=== PATIENT | male | born 1970 | race Caucasian/White ===

== ENCOUNTER 2025-03-27 08:34 | Outpatient (CLI) | payer OTHER, SELFPAY ==
--- NOTE | ~2025-03-27 | NM_ITS ---
EXAMINATION: NM parathyroid imaging w spect DATE: 03/27/2025 12:13 INDICATION: Hypercalcemia TECHNIQUE: 21 mCi Tc99m sestamibi (Cardiolite) was administered by intravenous route. Anterior images of the neck were obtained at 10 minutes and 2 hours. Delayed SPECT imaging reconstructed in the axia l, sagittal and coronal planes was also obtained. COMPARISON: None. FINDINGS/IMPRESSION: There is a prominent focus of persistent activity at the deep, inferior left thyroid consistent with parathyroid adenoma. Reviewed, dictated and finalized at location A.
--- OUTSIDE RECORDS SUMMARY | 2025-03-27 08:44 | XMS_ITS | Clinical Summary ---
Author Organization [facility] Address [address] [place] [address] Care Team Providers Care Lead Housekeeper Name Role Phone Marina Chou MD, Josh Primary Care Provider [phone] Encounters Date Type Department Care Team Description 03/25/2025 7:00 AM CDT - 03/25/2025 11:59 PM CDT Hospital Encounter [facility] [address] [place] [address] Josh Gray MD Arrived Discharge Disposition: Home or Self Care (Routine Discharge) 03/25/2025 Travel from Last 3 Months Social History Tobacco Use Types Packs/Day Years Used Date Smoking Tobacco: Never Assessed Sex and Gender Information Value Date Recorded Sex Assigned at Male 03/25/2025 7:11 AM CDT Legal Sex Male 8:03 AM CDT Gender Identity Not on file Sexual Orientation Not on file Plan of Treatment Health Maintenance Due Date Last Done Comments Colorectal Cancer Screening Colonoscopy (10 Years) 1968 Annual Physical 1971 Hepatitis C 1986 DTaP, Tdap and Td Vaccines ( 1 - Tdap) 1987 Hepatitis B Vaccines (1 of 3 - 19+ 3-dose series) 1987 Pneumococcal Vaccine: 50+ Ye ars (1 of 1 - PCV) 2018 Zoster Vaccines (1 of 2) 2018 COVID-19 Vaccine (2023-2 5 season) 2024 Meningococcal B Vaccine Aged Out No l onger eligible based on patient's age to complete this topic Meningococcal Vaccine Aged Out No colin delaney eligible based on patient's age to complete this topic RSV Immunizations Under 20 Months Aged Out No longer eligible based on patient's age to complete this topic Procedures Procedure Name Priority Date/Time Associated Diagnosis Comments CT BONE DENSITY AXIAL Routine 03/25/2025 7:40 AM CDT Hypercalcemia from Last 3 Months Results * CT BONE DENSITY AXIAL (03/25/2025 7:40 AM CDT) Anatomical Region Laterality Modality Bone Computed Tomogra phy 03/25/2025 8:19 PM CDT Impressions 03/25/2025 8:19 PM CDT IMPRESSION:===== BMD score of 130.5 is compatible with normal bone density Referred By: JOSH GRAY V Interpreted By: Shon De Leon MD, 03/25/2025 8:19 PM Narrative 03/25/2025 8:19 PM CDT [address] [place] [address] EXAMINATION: CT bone density EXAM DATE/TIME: 03/25/2025 7:34 AM REASON FOR EXAM: hypercalcemia postmenopausal status TECHNIQUE: Bone density measurements utilizing Quantitative CT are acquired at L2, L3, and L4 levels. Automated exposure control was utilized for dose reduction. Findings: Mean BMD: 130.5 mg/cc T score: -1.7 Z score: 0.7 ===== Procedure Note Shon De Leon MD - 03/25/[address] [place] [address] EXAMINATION: CT bone density EXAM DATE/TIME: 03/25/2025 7:34 AM REASON FOR EXAM: hypercalcemia postmenopausal status TECHNIQUE: Bone density measurements utilizing Quantitative CT areacquired at L2, L3, and L4 levels. Automated exposure control wasutilized for dose reduction. Findings: Mean BMD: 130.5 mg/cc T score: -1.7 Z score: 0.7 ===== IMPRESSION:===== BMD score of 130.5 is compatible with normal bone density Referred By: JOSH GRAY V Interpreted By: Shon De Leon MD, 03/25/2025 8:19 PM Josh Chou MD CT Final Result from Last 3 Months Insurance [employer] Care Teams Lead Housekeeper Relationship Specialty Start Date End Date Josh Gray MD [facility] [address] [place] [address] PCP - General INTERNAL MEDICINE 03/25/25
--- OUTSIDE RECORDS SUMMARY | 2025-03-27 08:45 | XMS_ITS | Encounter Summary ---
Author Organization [facility] Address [address] [place] [address] Care Team Providers Care Clerical Administrator Name Role Phone Marina Chou MD, Faisal Primary Care Provider [phone] Reason for Referral * Imaging (Routine) - Closed Specialty Diagnoses / Procedures Referred By Gena roberts Referred To Contact RADIOLOGY Diagnoses Hypercalcemia Procedures CT BONE DENSITY AXIAL Josh Gray MD [facility] [address] [address] Phone: tel: fax: Referral ID Status Reason Start Date Expiration Date Visits Re quested Visits Authorized Closed 03/25/2025 03/25/2025 1 1 Reason for Visit * Imaging (Routine) - Closed Specialty Diagnoses / Procedures Referred By Gena roberts Referred To Contact RADIOLOGY Diagnoses Hypercalcemia Procedures CT BONE DENSITY AXIAL Josh Gray MD [address] [address] Phone: tel: fax: Referral ID Status Reason Start Date Expiration Date Visits Re quested Visits Authorized Closed 03/25/2025 03/25/2025 1 1 Encounter Details Date Type Department Care Team (Late st Contact Info) Description 03/25/2025 7:00 AM CDT - 03/25/2025 11:59 PM CDT Hospital Encounter [facility] [address] [facility] [place] [id number] Josh rGay MD [address] [address] Arrived Discharge Disposition: Home or Self Care (Routine Discharge) Social History Tobacco Use Types Packs/Day Years Used Date Smoking Tobacco: Never Assessed Sex and Gender Information Value Date Recorded Sex Assigned at Male 03/25/2025 7:11 AM CDT Legal Sex Male 8:03 AM CDT Gender Identity Not on file Sexual Orientation Not on file documented as of this encounter Plan of Treatment Not on file documented as of this encounter Procedures Procedure Name Priority Date/Time Associated Diagnosis Comments CT BONE DENSITY AXIAL Routine 03/25/2025 7:40 AM CDT Hypercalcemia documented in this encounter Results * CT BONE DENSITY AXIAL (03/25/2025 7:40 AM CDT) Anatomical Region Laterality Modality Bone Computed Tomogra phy 03/25/2025 8:19 PM CDT Impressions 03/25/2025 8:19 PM CDT IMPRESSION:===== BMD score of 130.5 is compatible with normal bone density Referred By: JOSH GRAY V Interpreted By: Shon De Leon MD, 03/25/2025 8:19 PM Narrative 03/25/2025 8:19 PM CDT [address] [place] [address] EXAMINATION: CT bone density EXAM DATE/TIME: 03/25/2025 7:34 AM REASON FOR EXAM: hypercalcemia postmenopausal status TECHNIQUE: Bone density measurements utilizing Quantitative CT are acquired at L2, L3, and L4 levels. Automated exposure control was utilized for dose reduction. Findings: Mean BMD: 130.5 mg/cc T score: -1.7 Z score: 0.7 ===== Procedure Note Shon De Leon MD - 03/25/[address] [place] [address] EXAMINATION: CT bone density EXAM DATE/TIME: 03/25/2025 [...] Shon De Leon MD, 03/25/2025 8:19 PM us Josh Chou MD CT Final Result documented in this encounter Visit Diagnoses Diagnosis Hypercalcemia documented in this encounter Care Teams Clerical Administrator Relationship Specialty Start Date End Date Josh Gray MD [facility] [address] [place] [address] PCP - General INTERNAL MEDICINE 03/25/25 documented as of this encounter
[2025-03-27 09:50] LABS: Alanine Aminotransferase 44 U/L (6-50); Albumin Level 4.4 g/dL (3.5-5.1); Alkaline Phosphatase 111 U/L (38-126); Anion Gap 7 mmol/L (4-12); Aspartate Amino Transferase 30 U/L (17-59); Bilirubin,Total 0.7 mg/dL (0.2-1.3); Blood Urea Nitrogen 21 mg/dL (9-20); Calcium 10.6 mg/dL (8.4-10.2); Carbon Dioxide 28 mmol/L (22-30); Chloride 105 mmol/L (98-107); Estimated Glomerular Filt Rate > 60; Glucose 87 mg/dL (65-110); Magnesium 2.5 mg/dL (1.6-2.3); Phosphorus 2.6 mg/dL (2.5-4.5); Potassium 4.3 mmol/L (3.4-5.0); Sodium 140 mmol/L (137-145)
[2025-03-27 10:01] LABS: Parathyroid Intact 97.1 pg/mL (14.5-75.2)
[2025-03-27 10:13] LABS: Free T4 Free Thyroxine 1.23 ng/dL (0.78-2.19); Vitamin D 25 Hydroxy 30.8 ng/mL
[2025-03-27 10:20] LABS: Thyroid Stimulating Hormone 0.822 uIU/mL (0.465-4.680)
[2025-03-30 12:08] LABS: Ionized Calcium 5.9 mg/dL (4.7-5.5)
[2025-03-31 11:18] LABS: Vitamin D 1,25 (OH)2 Total 68 pg/mL (18-72); Vitamin D2 1,25 (OH)2 <8 pg/mL; Vitamin D3 1,25 (OH)2 68 pg/mL
== END 2025-03-27 08:35 | disposition home or self-care (01) ==
PROVIDERS: Visit Provider Internal Medicine
DX: E83.52 Hypercalcemia (principal)
CPT/HCPCS: 36415; 78071; 80053; 82306; 82330; 82652; 83519; 83735; 83970; 84100; 84439; 84443; A9500